=== PATIENT | female | born 1965 | race Caucasian/White ===

== ENCOUNTER 2017-11-28 22:14 | Emergency (ER) | payer BC, OTHER ==
[~2017-11-28] VITALS: Ht 170.2 cm; Wt 70.3 kg
[2017-11-28] MEDS ORDERED: ACETAMINOPHEN/CODEINE 300-30 MG TABLET PO ONE (22:30)
[2017-11-28] MEDS ORDERED: ACETAMINOPHEN/CODEINE 300-30 MG TABLET ONE (22:46)
--- NOTE | 2017-11-28 23:24 | NUR ---
Patient discharged to home in stable conditon. Written and verbal after care instructions given. Patient verbalizes understanding of instructions. Pt ambulated out of ER with surgical shoe placed & crutches accompanied by patient's daughter who will drive her home. All belongings with pt. VSS. NAD noted.
[2017-11-28 23:28] VITALS: BP 138/77
== END 2017-11-28 23:29 | disposition home or self-care (01) ==
LOC: ER 22:17
DX: S92.521A Displaced fracture of middle phalanx of right lesser toe(s), initial encounter for closed fracture (principal); Z88.5 Allergy status to narcotic agent; W22.8XXA Striking against or struck by other objects, initial encounter; Y93.89 Activity, other specified; Y92.89 Other specified places as the place of occurrence of the external cause; Y99.8 Other external cause status
CPT/HCPCS: 73660; A4663